=== PATIENT | male | born 1960 | race Caucasian/White ===

== ENCOUNTER 2017-09-07 10:36 | Inpatient (IN) | payer OTHER ==
[~2017-09-07] VITALS: Ht 200.7 cm; Wt 94.9 kg
[2017-09-07 11:34] LABS: CALCIUM 8.6 mg/dL (8.5-10.1); CARBON DIOXIDE 21.6 mmol/L (21-32); CHLORIDE SERUM 96 mmol/L (98-107); CREATININE SERUM 0.9 mg/dL (0.7-1.3); GFR1 > 60 mL/min; GLUCOSE SERUM 82 mg/dL (74-106); POTASSIUM SERUM 3.9 mmol/L (3.5-5.1); SODIUM SERUM 139 mmol/L (136-145)
[2017-09-07 11:46] LABS: ALKALINE PHOSPHATASE 56 U/L (46-116); ALT/SGPT 57 U/L (16-63); AST/SGOT 73 U/L (15-37); BILIRUBIN TOTAL 1.2 mg/dL (0.20-1.00); LIPASE 416 IU/L (73-393)
[2017-09-07 12:52] LABS: CHOLESTEROL/HDL RATIO 2.8; PHOSPHOROUS 3.9 mg/dL (2.5-4.9)
[2017-09-07 13:00] VITALS: BP 153/87
[2017-09-07 13:01] LABS: T3 TOTAL 0.77 ng/mL
[2017-09-07 13:02] LABS: FREE T4 1.12 ng/dL (0.76-1.46); FREE THYROXINE INDEX 4.1 ug/dL (1.4-4.5); T4(THYROXINE) 11.1 ug/dL (4.7-13.3)
[2017-09-07 16:56] VITALS: BP 123/69
[2017-09-07 21:59] VITALS: BP 153/81
[2017-09-08 06:15] VITALS: BP 159/84
[2017-09-08 06:15] LABS: BASOPHIL % 0.2 % (0-2)
[2017-09-08 06:53] LABS: PLATELET COUNT 64 x10^3mcL (130-400); RED CELL DISTRIBUTION WIDTH 14.9 % (11.5-14.5)
[2017-09-08 06:59] LABS: CALCIUM 8.4 mg/dL (8.5-10.1); CARBON DIOXIDE 29.3 mmol/L (21-32); CHLORIDE SERUM 100 mmol/L (98-107); CREATININE SERUM 0.9 mg/dL (0.7-1.3); GFR1 > 60 mL/min; GLUCOSE SERUM 103 mg/dL (74-106); PHOSPHOROUS 2.9 mg/dL (2.5-4.9); POTASSIUM SERUM 3.9 mmol/L (3.5-5.1); SODIUM SERUM 137 mmol/L (136-145)
[2017-09-08 08:35] VITALS: BP 150/82
[2017-09-08 10:22] LABS: UA SPECIFIC GRAVITY >=1.030 (1.005-1.035); microscopic required? YES; urine erythrocyte 1+ (NEGATIVE)
[2017-09-08 10:45] LABS: AMPHETAMINE QUAL UR NONE DETECTED (NEG <=1000)
[2017-09-08 12:20] LABS: BASOPHIL % 0.2 % (0-2)
[2017-09-08 12:42] LABS: PLATELET COUNT 78 x10^3mcL (130-400); RED CELL DISTRIBUTION WIDTH 15.1 % (11.5-14.5)
[2017-09-08 13:11] VITALS: BP 150/76
[2017-09-08 17:15] VITALS: BP 144/91
[2017-09-08 21:21] VITALS: BP 138/76
[2017-09-09 06:00] VITALS: BP 131/75
[2017-09-09 06:13] LABS: BASOPHIL % 0.3 % (0-2)
[2017-09-09 06:15] LABS: CALCIUM 8.7 mg/dL (8.5-10.1); CARBON DIOXIDE 29.5 mmol/L (21-32); CHLORIDE SERUM 103 mmol/L (98-107); CREATININE SERUM 0.8 mg/dL (0.7-1.3); GFR1 > 60 mL/min; GLUCOSE SERUM 153 mg/dL (74-106); POTASSIUM SERUM 3.1 mmol/L (3.5-5.1); SODIUM SERUM 140 mmol/L (136-145)
[2017-09-09 06:44] LABS: PLATELET COUNT 56 x10^3mcL (130-400); RED CELL DISTRIBUTION WIDTH 14.9 % (11.5-14.5)
[2017-09-09 08:51] VITALS: BP 136/75
[2017-09-09 12:59] VITALS: BP 139/84
[2017-09-09 17:40] VITALS: BP 137/77
[2017-09-09 21:07] VITALS: BP 150/91
[2017-09-10 06:07] VITALS: BP 142/88
[2017-09-10 07:02] LABS: CALCIUM 8.9 mg/dL (8.5-10.1); CARBON DIOXIDE 29.2 mmol/L (21-32); CHLORIDE SERUM 103 mmol/L (98-107); CREATININE SERUM 0.7 mg/dL (0.7-1.3); GFR1 > 60 mL/min; GLUCOSE SERUM 94 mg/dL (74-106); POTASSIUM SERUM 3.4 mmol/L (3.5-5.1); SODIUM SERUM 140 mmol/L (136-145)
[2017-09-10 10:14] VITALS: BP 140/81
[2017-09-10] MEDS ORDERED: LEXAPRO10 MG PO (11:59)
[2017-09-10] MEDS ORDERED: LIPI10 PO (12:00)
[2017-09-10] MEDS ORDERED: THI100 PO (12:01)
[2017-09-10] MEDS ORDERED: FOL1 PO (12:01)
[2017-09-10] MEDS ORDERED: THERAGRAN-M1 TA4 PO (12:02)
[2017-09-10] MEDS ORDERED: ATIVAN1 MG PO (12:03)
[2017-09-10 12:44] VITALS: BP 140/81
[2017-09-10 13:10] VITALS: BP 134/84
== END 2017-09-10 13:48 | disposition home or self-care (01) | DRG 775 ==
LOC: ED 10:36 → DU 12:07
PROVIDERS: Emergency Medicine; Family Medicine; ADMIT Family Medicine
DX: F10.129 Alcohol abuse with intoxication, unspecified (principal); N17.0 Acute kidney failure with tubular necrosis; G92 Toxic encephalopathy; E87.8 Other disorders of electrolyte and fluid balance, not elsewhere classified; F32.1 Major depressive disorder, single episode, moderate; E78.2 Mixed hyperlipidemia; R74.0 Nonspecific elevation of levels of transaminase and lactic acid dehydrogenase [LDH]; Z68.23 Body mass index [BMI] 23.0-23.9, adult; Z82.49 Family history of ischemic heart disease and other diseases of the circulatory system; E80.6 Other disorders of bilirubin metabolism; I16.0 Hypertensive urgency; E87.6 Hypokalemia
CPT/HCPCS: 83880; 84439; G0480; J2405; J3411; J3475; J3480; J3490; J7030; Q0092